=== PATIENT | male | born 1985 | race Asian ===

== ENCOUNTER 2023-03-03 14:56 | Emergency (ER) | payer BC ==
[~2023-03-03] VITALS: Ht 160 cm; Wt 68.0 kg
[2023-03-03 15:05] VITALS: BP_SYST 119
[2023-03-03] MEDS ORDERED: ONDANSETRON 4 MG ODT TAB PO ONE (15:30)
[2023-03-03 15:43] LABS: BLOOD, URINE 3+ (NEGATIVE); GLUCOSE,URINE NEGATIVE (NEGATIVE); KETONES,URINE 1+ (NEGATIVE); LEUKOCYTE ESTERASE ,URINE NEGATIVE (NEGATIVE); NITRITE, URINE NEGATIVE (NEGATIVE); PROTEIN URINE 2+ (NEGATIVE); UROBILINOGEN,URINE 0.2 (0.2-1.0)
[2023-03-03 16:02] LABS: BILIRUBIN,URINE 1+ (NEGATIVE); CLARITY/URINE HAZY (CLEAR); COLOR,URINE AMBER (YELLOW)
[2023-03-03 16:06] LABS: BACTERIA,URINE FEW /HPF (None Seen); MUCUS,URINE None Seen /LPF (None Seen); RBC,URINE NONE SEEN /HPF (0-3); WBC,URINE 0-3 /HPF (0-3)
[2023-03-03 16:10] LABS: BASOPHILS % (AUTO) 0.6 % (0.0-2.0); EOSINOPHILS # (AUTO) 0.1 K/uL (0.0-0.4); EOSINOPHILS % (AUTO) 0.9 % (0.0-4.0); HEMATOCRIT 38.5 % (36-54); HEMOGLOBIN 12.7 g/dL (14.0-18.0); LYMPHOCYTES # (AUTO) 0.8 K/uL (1.0-5.5); LYMPHOCYTES % (AUTO) 11.4 % (20.5-51.5); MEAN CORPUSCULAR HEMOGLOBIN 30 pg (27-31); MEAN CORPUSCULAR HGB CONC 33 % (32-36); MEAN CORPUSCULAR VOLUME 91 fL (79.0-98.0); MONOCYTES # (AUTO) 0.4 K/uL (0.0-1.0); MONOCYTES % (AUTO) 5.8 % (1.7-9.3); NEUTROPHILS # (AUTO) 5.4 K/uL (1.8-7.7); NEUTROPHILS % (AUTO) 81.3 % (40.0-70.0); PLATELET COUNT (AUTO) 144 K/uL (130-430); RED BLOOD CELL COUNT(AUTO) 4.21 MIL/uL (4.2-6.2); RED CELL DISTRIBUTION WIDTH 22.6 % (9.0-15.0); WHITE BLOOD COUNT (AUTO) 6.7 K/uL (4.8-10.8)
[2023-03-03 16:28] LABS: ANION GAP 10 (5-15); CALCIUM 8.6 mg/dL (8.4-11.0); CHLORIDE 102 mmol/L (98-107); CREATININE 0.73 mg/dL (0.55-1.30); GFR AFRICAN AMERICAN 155 mL/min (>90); GLUCOSE 127 mg/dL (70-99); UREA NITROGEN, BLOOD 13 mg/dL (8-21)
[2023-03-03 16:33] LABS: ALANINE AMINOTRANSFERASE 56 U/L (12-78); ALBUMIN 4.7 g/dL (3.4-4.8); AMYLASE 78 U/L (0-100); ASPARTATE AMINOTRANSFERASE 82 U/L (10-37); LIPASE 101 U/L (73-393); TOTAL BILIRUBIN 1.9 mg/dL (0.0-1.0)
[2023-03-03 16:46] LABS: C-REACTIVE PROTEIN QUANT < 0.2 mg/dL (0-0.5)
[2023-03-03 17:03] LABS: ACETONE, SERUM NEGATIVE (NEGATIVE)
[2023-03-03] MEDS ORDERED: IBUP-1969 PO (17:57)
[2023-03-03] MEDS ORDERED: TRAM50TA2 PO (17:57)
[2023-03-03] MEDS ORDERED: ONDA-8 TL (17:57)
[2023-03-03 18:29] VITALS: BP_SYST 119
== END 2023-03-03 18:29 | disposition home or self-care (01) ==
LOC: SED 14:56
DX: R10.9 Unspecified abdominal pain (principal); R11.10 Vomiting, unspecified; R19.7 Diarrhea, unspecified; Z79.899 Other long term (current) drug therapy
CPT/HCPCS: 99284; 74176; 80053; 81000; 82009; 82150; 83690; 85025; 86140; 36415; 76376; 83605; Q0162